=== PATIENT | female | born 1975 | race Hispanic/Latino ===

== ENCOUNTER 2018-11-29 13:24 | Observation (INO) | payer BC ==
[2018-11-29] MEDS ORDERED: NA CHLORIDE 0.9% 1,000 ML ONE (14:49)
--- NOTE | 2018-11-29 15:01 | RAD REPORT ---
EXAM DESCRIPTION: RAD - Tib Fib Left - 11/29/2018 2:55 pm CLINICAL HISTORY: Pain;Swelling COMPARISON: No comparisons FINDINGS: No fracture, dislocation or aggressive marrow pattern. Mild edema is seen throughout the l eft calf.
--- NOTE | 2018-11-29 15:01 | RAD REPORT ---
EXAM DESCRIPTION: RAD - Chest Single View - 11/29/2018 2:55 pm CLINICAL HISTORY: COUGH Chest pain. COMPARISON: No comparisons FINDINGS: Portable technique limits examination quality. The lungs are grossly clear. The heart is normal in size. No displaced fractures. IMPRESSION: No acute intrathoracic process suspected.
[2018-11-29 15:07] LABS: Absolute Lymphocytes (CBC) 1.4 K/uL (0.7-4.9); Absolute Monocytes 0.4 K/uL (0.1-1.3); Absolute Neutrophil 3.5 K/uL (1.8-8.0); Basophils % 1.1 % (0-1.3); Eosinophils % 4.4 % (0-4.4); Hematocrit 37.9 % (36.0-45.0); Lymphocytes % 25.3 % (15.3-44.8); MPV 9.7 fL (7.6-11.3); Monocytes % 7.5 % (3.3-12.3); RBC Red Blood Cell Count 5.11 M/uL (3.86-4.86)
[2018-11-29 15:14] LABS: Protime INR 1.1
--- NOTE | 2018-11-29 15:19 | RAD REPORT ---
EXAM DESCRIPTION: US - Extrem Venous W Compress [place] - 11/29/2018 3:12 pm CLINICAL HISTORY: Pain;Swelling Bilateral leg edema and swelling. COMPARISON: UPPER EXT ARTERY UNI DELANO dated 07/25/2014 TECHNIQUE: Real-time sonographic interrogation of the left and right lower extremity deep venous sys tems was performed. FINDINGS: No evidence of right lower extremity deep venous thrombosis. In the left popliteal vein, e chogenic thrombus is present compatible with DVT. IMPRESSION: Positive for left popliteal vein DVT.
[2018-11-29 15:32] LABS: ALT/SGPT 28 U/L (12-78); AST/SGOT 24 U/L (15-37); Albumin 3.7 g/dL (3.4-5.0); Alkaline Phosphatase 144 U/L (45-117); BUN Blood Urea Nitrogen 12 mg/dL (7-18); Bicarbonate 27 mmol/L (21-32); Bilirubin Direct < 0.1 mg/dL (0-0.2); Bilirubin Total 0.3 mg/dL (0.2-1.0); Glucose Level 103 mg/dL (74-106); Magnesium 2.3 mg/dL (1.8-2.4); NT PRO-BNP 48 pg/mL (<125); Potassium 3.6 mmol/L (3.5-5.1); Protein, Total 8.6 g/dL (6.4-8.2); Sodium Level 139 mmol/L (136-145); Troponin (Emerg Dept Use Only) < 0.02 ng/mL (0.0-0.045)
--- NOTE | 2018-11-29 15:33 | ER ---
Nurse's Notes [facility] Name: Emiliana Malik Age: 43 yrs Sex: Female : 1975 Arrival Date: 11/29/2018 Time: 13:29 Bed 18 Private MD: Yuri Adair Diagnosis: Acute embolism and thrombosis of deep veins of lower extremity Presentation: 11/29 14:01 Presenting complaint: Patient states: LLE swelling and redness started about 12 days sv ago and now has left arm tingling. Transition of care: patient was not received from another setting of care. Onset of symptoms was November 17, 2018. Care prior to arrival: None. 14:01 Method Of Arrival: Ambulatory sv 14:01 Acuity: MATTHEW 3 sv 14:30 Initial Sepsis Screen: Does the patient meet any 2 criteria? No. Patient's initial hb sepsis screen is negative. Does the patient have a suspected source of infection? No. Patient's initial sepsis screen is negative. 14:30 Risk Assessment: Do you want to hurt yourself or someone else? Patient reports no hb desire to harm self or others. Historical: - Allergies: 14:02 Aleve; sv - PSHx: 14:02 ; D \\T\\ C; Breast reduction; sv - Immunization history:: Adult Immunizations up to date. - Family history:: not pertinent. - Social history:: Smoking status: Patient/guardian denies using tobacco. - Ebola Screening: : No symptoms or risks identified at this time. Screenin:30 Abuse screen: Denies threats or abuse. Denies injuries from another. Nutritional hb screening: No deficits noted. Tuberculosis screening: No symptoms or risk factors identified. Fall Risk None identified. Assessment: 14:15 General: Appears in no apparent distress. Behavior is calm, cooperative. Pain: Denies hb pain. Neuro: Level of Consciousness is awake, alert, obeys commands, Oriented to person, place, time, situation. Cardiovascular: Capillary refill < 3 seconds Patient's skin is warm and dry. Respiratory: Airway is patent Respiratory effort is even, unlabored, Respiratory pattern is regular, symmetrical, Breath sounds are clear bilaterally. GI: No signs and/or symptoms were reported involving the gastrointestinal system. : No signs and/or symptoms were reported regarding the genitourinary system. EENT: No signs and/or symptoms were reported regarding the EENT system. Derm: Skin is pink, warm \\T\\ dry. LLE swelling and generalized redness noted. Musculoskeletal: Reports LLE "tightness". 15:00 Reassessment: Patient appears in no apparent distress at this time. Patient and/or hb family updated on plan of care and expected duration. Pain level reassessed. Patient is alert, oriented x 3, equal unlabored respirations, skin warm/dry/pink. 16:00 Reassessment: Patient appears in no apparent distress at this time. No changes from hb previously documented assessment. Patient and/or family updated on plan of care and expected duration. Pain level reassessed. Patient is alert, oriented x 3, equal unlabored respirations, skin warm/dry/pink. 17:00 Reassessment: Patient appears in no apparent distress at this time. Patient and/or hb family updated on plan of care and expected duration. Pain level reassessed. Patient is alert, oriented x 3, equal unlabored respirations, skin warm/dry/pink. Admission ordered, awaiting room assignment at this time. Daughter remains at bedside. 17:44 Reassessment: Patient appears in no apparent distress at this time. Patient and/or hb family updated on plan of care and expected duration. Pain level reassessed. Patient is alert, oriented x 3, equal unlabored respirations, skin warm/dry/pink. 18:20 Reassessment: Patient appears in no apparent distress at this time. Patient and/or hb family updated on plan of care and expected duration. Pain level reassessed. Patient is alert, oriented x 3, equal unlabored respirations, skin warm/dry/pink. 19:26 General: Appears in no apparent distress. comfortable, Behavior is calm, cooperative, tl2 appropriate for age. Pain: Complains of pain in left leg and dorsum of left foot. Neuro: Level of Consciousness is awake, alert, obeys commands, Oriented to person, place, time, situation. Cardiovascular: Denies chest pain. Respiratory: Airway is patent Respiratory effort is even, unlabored, Respiratory pattern is regular, symmetrical. GI: No signs and/or symptoms were reported involving the gastrointestinal system. Derm: Skin is pink, warm \\T\\ dry. redness noted in left ankle and swelling in left ankle and foot. 20:12 Reassessment: pt stable and ready for transport to floor. tl2 Vital Signs: 14:02 BP 126 / 92; Pulse 88; Resp 16; Temp 98.1; Pulse Ox 100% ; Weight 72.57 kg; Height 5 sv ft. 3 in. (160.02 cm); Pain 0/10; 15:30 BP 116 / 68; Pulse 78; Resp 16; Pulse Ox 100% on R/A; hb 17:40 BP 94 / 66; Pulse 68; Resp 16; Pulse Ox 97% ; hb 18:20 BP 96 / 77; Pulse 68; Resp 16; Pulse Ox 98% on R/A; hb 19:23 BP 110 / 88; Pulse 72; Resp 18; Pulse Ox 100% on R/A; tl2 14:02 Body Mass Index 28.34 (72.57 kg, 160.02 cm) sv ED Course: 13:29 Patient arrived in ED. sb2 13:29 Yuri Adair MD is Private Physician. sb2 14:01 Triage completed. sv 14:02 Arm band placed on. sv 14:05 Be Wetzel MD is Attending Physician. roger 14:30 Patient has correct armband on for positive identification. Bed in low position. Call hb light in reach. Side rails up X 1. 14:38 Meagan Evangelista, RN is Primary Nurse. hb 14:39 Radiology exam delayed due to lab results not completed at this time. (BUN/Creatinine). vr 14:45 Inserted saline lock: 20 gauge in right antecubital area, using aseptic technique. hb Blood collected. 14:55 XRAY Chest (1 view) In Process Unspecified. EDMS 14:55 Tib Fib Left XRAY In Process Unspecified. EDMS 15:06 Radiology exam delayed due to lab results not completed at this time. (BUN/Creatinine). vr 15:12 Radiology exam delayed due to lab results not completed at this time. (BUN/Creatinine). vm2 15:12 US Extremity Venous W Compression [place] In Process Unspecified. EDMS 15:31 Radiology exam delayed due to lab results not completed at this time. (BUN/Creatinine). nj 15:31 Doroteo Diaz DO is Hospitalizing Provider. roger 16:03 CT Chest For PE Angio In Process Unspecified. EDMS 16:04 CT completed. Patient tolerated procedure well. Patient moved back from CT. nj 20:12 No provider procedures requiring assistance completed. Patient admitted, IV remains in tl2 place. Administered Medications: 15:10 Drug: NS 0.9% 500 ml Route: IV; Rate: bolus; Site: right antecubital; hb 15:35 Follow up: Response: No adverse reaction; IV Status: Completed infusion hb 15:55 Drug: NS 0.9% 1000 ml Route: IV; Rate: 125 ml/hr; Site: right antecubital; hb 18:55 Follow up: IV Status: Infusion continued upon admission hb 18:57 Follow up: Response: No adverse reaction hb 16:45 Drug: Lovenox 1 mg/kg Route: Sub-Q; Site: abdomen; hb 18:00 Follow up: Response: No adverse reaction hb Outcome: 15:33 Decision to Hospitalize by Provider. roger 20:12 Admitted to Med/surg accompanied by nurse, family with patient, via wheelchair, room tl2 213, with chart, Report called to JENNIFER Luther 20:12 Condition: stable 20:12 Discharge instructions given to patient, Instructed on the need for admit. 20:14 Patient left the ED. tl2 Signatures: Dispatcher [employer] EDMS Shira Davis, RN Be Mccormick MD MD cha Davis, Victoria vr Baxter, Heather, RN RN hb Knox, Taylor, RN RN 2 Harry Rey Victoria Luz Elena Hartman2
--- NOTE | 2018-11-29 15:33 | EDPHYS ---
Physician Documentation [facility] Name: Emiliana Malik Age: 43 yrs Sex: Female : 1975 Arrival Date: 11/29/2018 Time: 13:29 Bed 18 Private MD: Yuri Adair ED Physician Be Wetzel HPI: 11/29 14:25 This 43 yrs old Female presents to ER via Ambulatory with complaints of Leg roger Swelling, Ankle Swelling. 14:25 The patient presents with pain, swelling, tenderness. The complaints affect the left roger ankle, lateral aspect of left calf, left lateral ankle, lateral aspect of left foot, left calf, left Achilles, left heel, medial aspect of left calf, left medial ankle, medial aspect of left foot, left herrera, anterior aspect of left ankle and dorsum of left foot. Onset: The symptoms/episode began/occurred 3 day(s) ago. Context: The problem was sustained at an unknown location. Associated signs and symptoms: The patient has no apparent associated signs or symptoms. Severity of symptoms: At their worst the symptoms were mild, in the emergency department the symptoms are unchanged. The patient has not experienced similar symptoms in the past. Historical: - Allergies: 14:02 Aleve; sv - PSHx: 14:02 ; D \T\ C; Breast reduction; sv - Immunization history:: Adult Immunizations up to date. - Family history:: not pertinent. - Social history:: Smoking status: Patient/guardian denies using tobacco. - Ebola Screening: : No symptoms or risks identified at this time. ROS: 14:25 Constitutional: Negative for fever, chills, and weight loss, Eyes: Negative for injury, roger pain, redness, and discharge, ENT: Negative for injury, pain, and discharge, Neck: Negative for injury, pain, and swelling, Cardiovascular: Negative for chest pain, palpitations, and edema, Respiratory: Negative for shortness of breath, cough, wheezing, and pleuritic chest pain, Abdomen/GI: Negative for abdominal pain, nausea, vomiting, diarrhea, and constipation, Back: Negative for injury and pain, : Negative for injury, bleeding, discharge, and swelling, Skin: Negative for injury, rash, and discoloration, Neuro: Negative for headache, weakness, numbness, tingling, and seizure, Psych: Negative for depression, anxiety, suicide ideation, homicidal ideation, and hallucinations, Allergy/Immunology: Negative for hives, rash, and allergies, Endocrine: Negative for neck swelling, polydipsia, polyuria, polyphagia, and marked weight changes, Hematologic/Lymphatic: Negative for swollen nodes, abnormal bleeding, and unusual bruising. 14:25 MS/extremity: Positive for erythema, pain, swelling, of the left leg. Exam: 14:25 Constitutional: This is a well developed, well nourished patient who is awake, alert, roger and in no acute distress. Head/Face: Normocephalic, atraumatic. Eyes: Pupils equal round and reactive to light, extra-ocular motions intact. Lids and lashes normal. Conjunctiva and sclera are non-icteric and not injected. Cornea within normal limits. Periorbital areas with no swelling, redness, or edema. ENT: Nares patent. No nasal discharge, no septal abnormalities noted. Tympanic membranes are normal and external auditory canals are clear. Oropharynx with no redness, swelling, or masses, exudates, or evidence of obstruction, uvula midline. Mucous membranes moist. Neck: Trachea midline, no thyromegaly or masses palpated, and no cervical lymphadenopathy. Supple, full range of motion without nuchal rigidity, or vertebral point tenderness. No Meningismus. Chest/axilla: Normal chest wall appearance and motion. Nontender with no deformity. No lesions are appreciated. Cardiovascular: Regular rate and rhythm with a normal S1 and S2. No gallops, murmurs, or rubs. Normal PMI, no JVD. No pulse deficits. Respiratory: Lungs have equal breath sounds bilaterally, clear to auscultation and percussion. No rales, rhonchi or wheezes noted. No increased work of breathing, no retractions or nasal flaring. Abdomen/GI: Soft, non-tender, with normal bowel sounds. No distension or tympany. No guarding or rebound. No evidence of tenderness throughout. Back: No spinal tenderness. No costovertebral tenderness. Full range of motion. Female : Normal external genitalia. Skin: Warm, dry with normal turgor. Normal color with no rashes, no lesions, and no evidence of cellulitis. Neuro: Awake and alert, GCS 15, oriented to person, place, time, and situation. Cranial nerves II-XII grossly intact. Motor strength 5/5 in all extremities. Sensory grossly intact. Cerebellar exam normal. Normal gait. Psych: Awake, alert, with orientation to person, place and time. Behavior, mood, and affect are within normal limits. 14:25 Musculoskeletal/extremity: Extremities: noted in the lateral aspect of left calf, left lateral ankle, left calf, left Achilles, medial aspect of left calf, left medial ankle, left herrera and anterior aspect of left ankle: pain, swelling, tenderness. Vital Signs: 14:02 BP 126 / 92; Pulse 88; Resp 16; Temp 98.1; Pulse Ox 100% ; Weight 72.57 kg; Height 5 sv ft. 3 in. (160.02 cm); Pain 0/10; 15:30 BP 116 / 68; Pulse 78; Resp 16; Pulse Ox 100% on R/A; hb 17:40 BP 94 / 66; Pulse 68; Resp 16; Pulse Ox 97% ; hb 18:20 BP 96 / 77; Pulse 68; Resp 16; Pulse Ox 98% on R/A; hb 19:23 BP 110 / 88; Pulse 72; Resp 18; Pulse Ox 100% on R/A; tl2 14:02 Body Mass Index 28.34 (72.57 kg, 160.02 cm) sv MDM: 14:05 Patient medically screened. [facility] 14:27 Data reviewed: vital signs, nurses notes, lab test result(s), EKG, radiologic studies, roger doppler, plain films. 11/29 14:24 Order name: Basic Metabolic Panel; Complete Time: 16:24 [facility] 11/29 14:24 Order name: CBC with Diff; Complete Time: 15:20 [facility] 11/29 14:24 Order name: LFT's; Complete Time: 16:24 [facility] 11/29 14:24 Order name: Magnesium; Complete Time: 16:24 [facility] 11/29 14:24 Order name: NT PRO-BNP; Complete Time: 16:24 [facility] 11/29 14:24 Order name: PT-INR; Complete Time: 16:24 [facility] 11/29 14:24 Order name: Troponin (emerg Dept Use Only); Complete Time: 16:24 [facility] 11/29 14:24 Order name: XRAY Chest (1 view); Complete Time: 15:20 [facility] 11/29 14:24 Order name: US Extremity Venous W Compression [place]; Complete Time: 16:24 [facility] 11/29 14:24 Order name: Blood Culture Adult (2) [facility] 11/29 14:24 Order name: CT Chest For PE Angio [facility] 11/29 14:24 Order name: Tib Fib Left XRAY; Complete Time: 15:20 [facility] 11/29 17:12 Order name: Urine Dipstick--Ancillary (enter results) 11/29 17:12 Order name: Urine --Ancillary (enter results) 11/29 14:24 Order name: EKG; Complete Time: 14:26 [facility] 11/29 14:24 Order name: Cardiac monitoring; Complete Time: 15:32 [facility] 11/29 14:24 Order name: EKG - Nurse/Tech; Complete Time: 15:32 [facility] 11/29 14:24 Order name: IV Saline Lock; Complete Time: 15:32 [facility] 11/29 14:24 Order name: Labs collected and sent; Complete Time: 15:32 [facility] 11/29 14:24 Order name: O2 Per Protocol; Complete Time: 15:33 [facility] 11/29 14:24 Order name: O2 Sat Monitoring; Complete Time: 15:33 [facility] 11/29 14:24 Order name: Urine Dipstick-Ancillary (obtain specimen); Complete Time: 15:32 [facility] 11/29 15:20 Order name: Urine Test (obtain specimen); Complete Time: 15:31 [facility] Administered Medications: 15:10 Drug: NS 0.9% 500 ml Route: IV; Rate: bolus; Site: right antecubital; hb 15:35 Follow up: Response: No adverse reaction; IV Status: Completed infusion hb 15:55 Drug: NS 0.9% 1000 ml Route: IV; Rate: 125 ml/hr; Site: right antecubital; hb 18:55 Follow up: IV Status: Infusion continued upon admission hb 18:57 Follow up: Response: No adverse reaction hb 16:45 Drug: Lovenox 1 mg/kg Route: Sub-Q; Site: abdomen; hb 18:00 Follow up: Response: No adverse reaction hb Disposition: 11/29/18 15:33 Hospitalization ordered by Doroteo Diaz for Inpatient Admission. Preliminary diagnosis is Acute embolism and thrombosis of deep veins of lower extremity. - Bed requested for Telemetry/MedSurg (Inpatient). - Status is Inpatient Admission. tl2 - Condition is Fair. - Problem is new. - Symptoms have improved. UTI on Admission? Yes Signatures: Dispatcher [employer] EDMS Nia Michael Shira Márquez, RN RN Be Khan MD MD cha Baxter, Heather, RN RN Maris Harp RN RN tl2 Corrections: (The following items were deleted from the chart) 15:33 15:33 Hospitalization Ordered by Doroteo Diaz DO for Inpatient Admission. Preliminary roger diagnosis is Acute embolism and thrombosis of deep veins of lower extremity. Bed requested for Telemetry/MedSurg (Inpatient). Status is Inpatient Admission. Condition is Fair. Problem is new. Symptoms have improved. UTI on Admission? No. roger 18:05 15:33 11/29/2018 15:33 Hospitalization Ordered by Doroteo Diaz DO for Inpatient bd Admission. Preliminary diagnosis is Acute embolism and thrombosis of deep veins of lower extremity. Bed requested for Telemetry/MedSurg (Inpatient). Status is Inpatient Admission. Condition is Fair. Problem is new. Symptoms have improved. UTI on Admission? Yes. roger 20:14 18:05 11/29/2018 15:33 Hospitalization Ordered by DoroteoJoel ROSE for Inpatient tl2 Admission. Preliminary diagnosis is Acute embolism and thrombosis of deep veins of lower extremity. Bed requested for Telemetry/MedSurg (Inpatient). Status is Inpatient Admission. Condition is Fair. Problem is new. Symptoms have improved. UTI on Admission? Yes. bd
--- NOTE | 2018-11-29 16:36 | RAD REPORT ---
EXAM DESCRIPTION: CT - Chest For Pe Angio - 11/29/2018 4:01 pm CLINICAL HISTORY: Shortness of breath COMPARISON: None. TECHNIQUE: Dynamically enhanced axial 3 mm thick images of the chest were obtained during administra tion of <100> mL Isovue 370 IV contrast. Coronal and oblique reconstruction images were generated and reviewed. Exam utilizes a protocol for optimal evaluation of pulmonary arterial tree. Maximum intensity projections 3D imaging was utilized All CT scans are performed using dose optimization technique as appropriate and may include automated exposure control or mA/KV adjustment according to patient size. FINDINGS: A pulmonary embolus is not seen. A thoracic aortic aneurysm is not noted. A pleural effusion is not seen. A pericardial effusion is not seen. A lung consolidation is not present. Soft tissue prominence is present within the lower right neck adjacent to the right lobe of thyroid g land. It is incompletely evaluated on this exam IMPRESSION: Negative for a pulmonary embolism. Soft tissue prominence lateral to the right lobe of the thyroid gland is incompletely evaluated on th is exam. Ultrasound is recommended
[2018-11-29] MEDS ORDERED: ENOXAPARIN 80 MG/0.8 ML SQ ONE (17:07)
[2018-11-29] MEDS ORDERED: METRONIDAZOLE 500mg IVPB 500 MG/100 ML BAG IV ONE (17:08)
[2018-11-29] MEDS ORDERED: CIPROFLOXACIN 400mg IV 400 MG/200 ML BAG IV ONE (17:08)
--- NOTE | 2018-11-29 17:09 | EKG ---
Test Date: 2018-11-29 Test Time: 14:33:38 [employer]: KEN MEASUREMENT RESULTS: Intervals: Rate: 65 CO: 122 QRSD: 78 QT: 418 QTc: 434 [place]: P: 8 CO: 122 QRS: -12 T: 12 INTERPRETIVE STATEMENTS: Normal sinus rhythm Normal ECG Compared to ECG 11/08/1998 11:23:00 Sinus bradycardia no longer present Electronically Signed On 11-29-18 17:08:09 [employer]PER[employer] by Evangelista Bates
--- NOTE | 2018-11-29 17:16 | P.HP ---
Certification for Inpatient Patient admitted to: Observation With expected LOS: <2 Midnights Patient will require the following post-hospital care: None Practitioner: I am a practitioner with admitting privileges, knowledge of patient current condition, hospital course, and medical plan of care. Services: Services provided to patient in accordance with Admission requirements found in Title 42 Section 412.3 of the Code of Federal Regulations Patient History Date of Service: 11/29/18 Primary Care Provider: Dr. Adair; Cardiology-Dr. Bates Reason for admission: Left lower extremity swelling History of Present Illness: 43-year-old female presented to the emergency room with left lower extremity swelling. Patient reports left lower extremity swelling for over 12 days. She denies any recent travel, trauma. She reports that her calf feels very tight. Increased swelling noted. Today some erythema noted. She denies any significant fever, cyst chills, chest pain or shortness of breath. Patient reports history of tobacco use, Raynaud's syndrome, and elevated blood pressure in the past. She denies any use of contraception medications In the ER patient evaluated. Vital signs stable. CBC unremarkable. BMP unremarkable. Troponin unremarkable. Venous Doppler shows left popliteal vein DVT. Chest x-ray unremarkable. CT shows no pulmonary embolism. Possible right thyroid nodule verses prominence noted. Patient admitted for observation. When I saw the patient ER, she appeared stable. Home medications list reviewed: Yes - Past Medical/Surgical History Diabetic: No -: Elevated blood pressure without hypertension -: Raynaud's syndrome -: Tobacco use -: Alcohol use -: Breast reduction -: -: Cholecystectomy Psychosocial/ Personal History: Patient is . She has 2 children. She works as an office services manager. - Family History Father -: Heart disease, Hypertension, Diabetes Mother -: Heart disease, Hypertension, Diabetes - Social History Smoking Status: Light Tobacco smoker (1-9 cigarettes/day) Counseled patient to stop smoking for: less than 10 minutes Smoking therapy provided: Yes Patient receptive to therapy: Yes Alcohol use: Yes CD- Drugs: No Caffeine use: Yes Place of Residence: Home Review of Systems General: As per HPI Eyes: Unremarkable ENT: Unremarkable Respiratory: Unremarkable Cardiovascular: Edema, As per HPI Gastrointestinal: Unremarkable Genitourinary: Unremarkable Musculoskeletal: Pedal edema, As per HPI Integumentary: As per HPI Neurological: Unremarkable Lymphatics: Unremarkable Physical Examination - Physical Exam General: Alert, In no apparent distress, Oriented x3, Cooperative HEENT: Atraumatic, Normocephalic, PERRLA, Mucous membr. moist/pink Neck: Supple, No Thyromegaly Respiratory: Clear to auscultation bilaterally, Normal air movement Cardiovascular: Normal pulses, Regular rate/rhythm Gastrointestinal: Normal bowel sounds, Soft and benign, Non-distended, No tenderness, No masses, No rebound, No guarding Musculoskeletal: Other (Mild erythema to the left lower extremity below the knee. Increased swelling noted. Compared to the right side) Neurological: Normal speech, Normal strength at 5/5 x4 extr, Normal tone, Normal affect Lymphatics: No axilla or inguinal lymphadenopathy - Studies Laboratory Data (last 24 hrs) 11/29/18 14:45: PT 13.0 H, INR 1.10 11/29/18 14:45: WBC 5.7, Hgb 12.0, Hct 37.9, Plt Count 365 11/29/18 14:45: Sodium 139, Potassium 3.6, BUN 12, Creatinine 0.71, Glucose 103 , Magnesium 2.3, Total Bilirubin 0.3, AST 24, ALT 28, Alkaline Phosphatase 144 H Assessment and Plan - Plan Impression: Left lower extremity swelling secondary to left popliteal vein DVT Raynaud's syndrome History of social tobacco and alcohol use History of elevated blood pressure Possible thyroid mass Plan: Left lower extremity swelling secondary to left popliteal vein DVT: Patient will be admitted and observed. Will obtain echocardiogram to further evaluate. Will start Lovenox 1 milligram/kilograms subcu twice daily. If unremarkable patient can be discharged tomorrow on anti coagulation therapy. Patient will likely require 3-6 months of therapy. Will check an FENG. Patient will need to see Hematology as an outpatient to further evaluate. Will discuss case with her manager sports. Raynaud's syndrome: patient not taking any medication at this time. History of social tobacco and alcohol use: Tobacco and alcohol cessation addressed in detail. History of elevated blood pressure: Will monitor blood pressure. Possible thyroid mass: Will check tsh and thyroid ultrasound to further evaluate. Discharge Plan: Home Plan to discharge in: 24 Hours - Advance Directives Does patient have a Living Will: No Does patient have a Durable POA for Healthcare: No - Code Status/Comfort Care Code Status Assessed: Yes (Patient full code.) Time Spent Managing Pts Care (In Minutes): 55
[2018-11-29 17:48] LABS: Urine Blood NEGATIVE (NEG); Urine Glucose NEGATIVE (NEG); Urine Protein NEGATIVE (NEG)
[2018-11-29] MEDS ORDERED: ONDANSETRON 4 MG/2 ML VIAL IV PRN (20:10)
[2018-11-29] MEDS ORDERED: ACETAMINOPHEN 500 MG TAB PO PRN (20:10)
--- NOTE | 2018-11-29 21:24 | RAD REPORT ---
EXAM DESCRIPTION: US - Thyroid Para Parotid Gland - 11/29/2018 9:15 pm CLINICAL HISTORY: evaluate for mass L lobe, has LLE DVT COMPARISON: Chest For Pe Angio dated 11/29/2018 FINDINGS: The isthmus of the thyroid measures 3 mm. The right lobe of the thyroid measures 5.0 x 1.5 x 1.5 cm. The left lobe of the thyroid measures 4.7 x 1.6 x 1.4 cm. No thyroid nodule or mass is identified. IMPRESSION: Unremarkable study.
[2018-11-30] MEDS: ENOXAPARIN 80 MG/0.8 ML SQ SCH ×2 (04:50→16:50)
[2018-11-30 06:08] LABS: Magnesium 2.3 mg/dL (1.8-2.4); Thyroid Stimulating Hormone 0.989 uIU/mL (0.360-3.740)
[2018-11-30 06:10] LABS: Absolute Lymphocytes (CBC) 1.3 K/uL (0.7-4.9); Absolute Monocytes 0.6 K/uL (0.1-1.3); Absolute Neutrophil 2.6 K/uL (1.8-8.0); Basophils % 2.2 % (0-1.3); Hematocrit 32.4 % (36.0-45.0); Lymphocytes % 27.1 % (15.3-44.8); Monocytes % 11.7 % (3.3-12.3); RBC Red Blood Cell Count 4.39 M/uL (3.86-4.86)
[2018-11-30 06:22] LABS: Urine Appearance CLEAR; Urine Blood NEGATIVE (NEG); Urine Color YELLOW; Urine Glucose NEGATIVE (NEG); Urine Protein NEGATIVE (NEG); Urine Specific Gravity >=1.030 (1.005-1.030); Urine pH 5.5 (5.0-7.0)
[2018-11-30 07:17] LABS: Urine Bilirubin NEGATIVE (NEG); Urine Microscopic Reflex NO UMIC
--- NOTE | 2018-11-30 13:13 | P.DS ---
Admission Date: 11/29/18 Discharge Date: 11/30/18 Primary Care Provider: Dr. Adair; Cardiology-Dr. Bates Disposition: ROUTINE DISCHARGE Discharge Condition: GOOD Reason for Admission: Left lower extremity swelling Consultations: none Procedures: Venous doppler: COMPARISON: UPPER EXT ARTERY UNI FRANCISCO dated 07/25/2014 TECHNIQUE: Real-time sonographic interrogation of the left and right lower extremity deep venous systems was performed. FINDINGS: No evidence of right lower extremity deep venous thrombosis. In the left popliteal vein, echogenic thrombus is present compatible with DVT. IMPRESSION: Positive for left popliteal vein DVT. CT scan: COMPARISON: None. TECHNIQUE: Dynamically enhanced axial 3 mm thick images of the chest were obtained during administration of <100> mL Isovue 370 IV contrast. Coronal and oblique reconstruction images were generated and reviewed. Exam utilizes a protocol for optimal evaluation of pulmonary arterial tree. Maximum intensity projections 3D imaging was utilized All CT scans are performed using dose optimization technique as appropriate and may include automated exposure control or mA/KV adjustment according to patient size. FINDINGS: A pulmonary embolus is not seen. A thoracic aortic aneurysm is not noted. A pleural effusion is not seen. A pericardial effusion is not seen. A lung consolidation is not present. Soft tissue prominence is present within the lower right neck adjacent to the right lobe of thyroid gland. It is incompletely evaluated on this exam IMPRESSION: Negative for a pulmonary embolism. Soft tissue prominence lateral to the right lobe of the thyroid gland is incompletely evaluated on this exam. Ultrasound is recommended Thyroid US: FINDINGS: The isthmus of the thyroid measures 3 mm. The right lobe of the thyroid measures 5.0 x 1.5 x 1.5 cm. The left lobe of the thyroid measures 4.7 x 1.6 x 1.4 cm. No thyroid nodule or mass is identified. IMPRESSION: Unremarkable study. Medical Problem List: Left lower extremity swelling secondary to left popliteal vein DVT Raynaud's syndrome History of social tobacco and alcohol use History of elevated blood pressure Brief History of Present Illness: 43-year-old female presented to the emergency room with left lower extremity swelling. Patient reports left lower extremity swelling for over 12 days. She denies any recent travel, trauma. She reports that her calf feels very tight. Increased swelling noted. Today some erythema noted. She denies any significant fever, cyst chills, chest pain or shortness of breath. Patient reports history of tobacco use, Raynaud's syndrome, and elevated blood pressure in the past. She denies any use of contraception medications In the ER patient evaluated. Vital signs stable. CBC unremarkable. BMP unremarkable. Troponin unremarkable. Venous Doppler shows left popliteal vein DVT. Chest x-ray unremarkable. CT shows no pulmonary embolism. Possible right thyroid nodule verses prominence noted. Patient admitted for observation. When I saw the patient ER, she appeared stable. Hospital Course: Patient presented with left lower extremity swelling. She has found to have left popliteal vein DVT. Patient was admitted for further evaluation. CT scan showed no pulmonary embolism. Thyroid ultrasound was done to rule out abnormality suspected on initial CT scan. Thyroid or sound unremarkable. At discharge patient will continue with Eliquis 10 mg 1 pill twice daily for 7 days then 5 mg 1 pill twice daily for up to 3 months. Education on Eliquis and DVT will be provided. FENG panel obtained. This could be followed up by her PCP. Recommend to follow up with her PCP in 1 week to recheck lab-CBC, BMP. Recommend for patient to follow up with hematology to further assess her condition. Patient with history of raynaud syndrome. Echocardiogram done. Results pending at discharge. Will discuss case with her engine dynamometer tester for further recommendation. Patient can follow up with cardiology as an outpatient. Vital Signs/Physical Exam: Temp Pulse Resp BP Pulse Ox 97.6 F 75 17 98/54 L 17 L 11/30/18 08:00 11/30/18 08:00 11/30/18 08:00 11/30/18 08:00 11/30/18 08:00 General: Alert, In no apparent distress, Oriented x3, Cooperative HEENT: Atraumatic Neck: Supple Respiratory: Clear to auscultation bilaterally, Normal air movement Cardiovascular: Normal pulses, Regular rate/rhythm Gastrointestinal: Normal bowel sounds, Soft and benign, Non-distended, No tenderness, No masses, No rebound, No guarding Musculoskeletal: No warmth Integumentary: Other (Swelling to the left lower extremity significantly improved. No significant pain noted.) Neurological: Normal speech, Normal strength at 5/5 x4 extr, Normal tone, Normal affect Laboratory Data at Discharge: WBC 4.9 K/uL (4.3-10.9) D 11/30/18 05:31 Hgb 10.4 g/dL (12.0-15.0) L 11/30/18 05:31 Hct 32.4 % (36.0-45.0) L 11/30/18 05:31 Plt Count 331 K/uL (152-406) 11/30/18 05:31 PT 13.0 SECONDS (9.5-12.5) H 11/29/18 14:45 INR 1.10 11/29/18 14:45 Sodium 141 mmol/L (136-145) 11/30/18 05:31 Potassium 4.0 mmol/L (3.5-5.1) 11/30/18 05:31 BUN 15 mg/dL (7-18) 11/30/18 05:31 Creatinine 0.76 mg/dL (0.55-1.3) 11/30/18 05:31 Glucose 123 mg/dL (74-106) H 11/30/18 05:31 Magnesium 2.3 mg/dL (1.8-2.4) 11/30/18 05:31 Total Bilirubin 0.3 mg/dL (0.2-1.0) 11/29/18 14:45 AST 24 U/L (15-37) 11/29/18 14:45 ALT 28 U/L (12-78) 11/29/18 14:45 Alkaline Phosphatase 144 U/L (45-117) H 11/29/18 14:45 Triglycerides 177 mg/dL (<150) H 11/30/18 05:31 Cholesterol 164 mg/dL (<200) 11/30/18 05:31 HDL Cholesterol 47 mg/dL (40-60) 11/30/18 05:31 Cholesterol/HDL Ratio 3.49 11/30/18 05:31 Home Medications: Apixaban [Eliquis] 5 mg PO SEECOM #56 tablet 11/30/18 New Medications: Apixaban [Eliquis] 5 mg PO SEECOM #56 tablet Patient Discharge Instructions: 1. Patient will need to follow up with her PCP in 1 week to follow up this hospitalization. 2. Patient presented with left lower extremity swelling related to Left Popliteal DVT. Patient treated and improved. She will continue with Eliquis 10 mg twice daily for 7 days, then 5 mg twice daily for up to 3 months. Recommendation is for the patient to follow up with her PCP within one week to further address. Recommendation for the patient to see Hematology as outpatient to further address. 3. Recommend to recheck Lab-CBC, BMP in one week to monitor her progress. 4. Recommend to follow up with her engine dynamometer tester as an outpatient to further address her condition. Echocardiogram obtained. This will need to be followed up by her PCP and/or cardiology. Diet: AHA Activity: Ad tomás Time spent managing pt's care (in minutes): 55
--- NOTE | 2018-11-30 13:50 | ECHO ---
HEIGHT: 5 ft 3 in WEIGHT: 160 lb 0 oz DATE OF STUDY: 11/30/[address]: Doroteo Diaz DO 2-DIMENSIONAL: YES M.MODE: YES DOPPLER: YES COLOR FLOW: YES TDS: NO PORTABLE: NO DEFINITY: NO BUBBLE STUDY: NO DIAGNOSIS: LEFT LEG EDEMA/ DEEP VEIN THROMBOSIS CARDIAC HISTORY: CATHERIZATION: NO SURGERY: NO PROSTHETIC VALVE: NO PACEMAKER: NO MEASUREMENTS (cm) DIASTOLIC (NORMALS) SYSTOLIC (NORMALS) IVSd 0.9 (0.6-1.2) LA Diam (1.9-4.0) LVEF 69% LVIDd 3.5 (3.5-5.7) LVIDs 2.2 (2.0-3.5) %FS 38% LVPWd 0.8 (0.6-1.2) Ao Diam 2.1 (2.0-3.7) 2 DIMENSIONAL ASSESSMENT: RIGHT ATRIUM: NORMAL LEFT ATRIUM: NORMAL RIGHT VENTRICLE: NORMAL LEFT VENTRICLE: NORMAL TRICUSPID VALVE: NORMAL MITRAL VALVE: NORMAL PULMONIC VALVE: NORMAL AORTIC VALVE: NORMAL PERICARDIAL EFFUSION: NONE AORTIC ROOT: NORMAL LEFT VENTRICULAR WALL MOTION: NORMAL DOPPLER/COLOR FLOW: MILD TRICUSPID REGURGITATION. COMMENTS: MILD TRICUSPID REGURGITATION. NORMAL LEFT VENTRICULAR SIZE AND FUNCTION. NO THROMBUS. TECHNOLOGIST: LAURA MARTINEZ
== END 2018-11-30 17:12 | disposition home or self-care (01) ==
LOC: ER 13:24 → ERHOLD 17:05 → 2ND 19:54
PROVIDERS: ADMIT Family Medicine; ATTEND Family Medicine
DX: I82.432 Acute embolism and thrombosis of left popliteal vein (principal); I73.00 Raynaud's syndrome without gangrene; Z87.891 Personal history of nicotine dependence
CPT/HCPCS: 36415; 71045; 71275; 76536; 80048; 80061; 80076; 81003; 81025; 83735; 83880; 84439; 84443; 84484; 85025; 85610; 86038; 87040; 93005; 93306; 93970; 96360; 96361; 96372; 99285; G0378; J0744; J1650; J7030; Q9967

== ENCOUNTER 2018-12-28 11:36 | Observation (INO) | payer BC ==
--- OUTSIDE RECORDS SUMMARY | 2018-12-28 11:39 | XMS REPORT ---
:1975 Author Organization [employer] Care Team Providers Name Role Phone Anam Colindres Provider Role Unavailable Allergies, Adverse Reactions, Alerts Substance Reaction Event Type Aleve Info Not Available Drug Allergy Problems Problem Type Condition Code Onset Dates Condition Status Assessment Family history of rheumatoid Z82.61 Active arthritis Problem Chronic deep vein thrombosis (DVT) I82.532 Active of popliteal vein of left lower extremity Problem Raynaud''s disease without gangrene I73.00 Active Problem Mild intermittent asthma without J45.20 Active complication Assessment Raynaud''s disease without gangrene I73.00 Active Assessment Chronic deep vein thrombosis (DVT) I82.532 Active of popliteal vein of left lower extremity Assessment Mild intermittent asthma without J45.20 Active complication Medications Medication Code Code Instructions Start End Date Status Dosage System Date Eliquis 5 mg [facility] 33751180481 5 mg by mouth June 06, Active one twice daily 2018 Tylenol [facility] 93012038738 325 MG Orally Active 1 tablet every 4 hrs as needed Zyrtec Allergy [facility] 14736451929 10 MG Orally Active 1 tablet Once a day Bronkaid [facility] [id number] 25-400 MG Orally Dec 08, Active 1 tablet every 4 hrs 2018 as needed ProAir HFA [facility] [id number] 108 (90 Base) Dec 08, Active 2 puffs MCG/ACT 2019 as needed Inhalation every 6 hrs Results No Known Results Summary Purpose [employer] Submission
[2018-12-28 12:42] LABS: Absolute Lymphocytes (CBC) 1.2 K/uL (0.7-4.9); Absolute Monocytes 0.7 K/uL (0.1-1.3); Absolute Neutrophil 6.2 K/uL (1.8-8.0); Basophils % 0.9 % (0-1.3); Eosinophils % 1.3 % (0-4.4); Hematocrit 36.4 % (36.0-45.0); Lymphocytes % 14.4 % (15.3-44.8); MPV 9.3 fL (7.6-11.3); Monocytes % 8.5 % (3.3-12.3); RBC Red Blood Cell Count 5.03 M/uL (3.86-4.86)
[2018-12-28 12:50] LABS: Protime INR 1.55
[2018-12-28 12:57] LABS: ALT/SGPT 20 U/L (12-78); AST/SGOT 11 U/L (15-37); Albumin 3.5 g/dL (3.4-5.0); Alkaline Phosphatase 142 U/L (45-117); BUN Blood Urea Nitrogen 16 mg/dL (7-18); Bicarbonate 26 mmol/L (21-32); Bilirubin Direct < 0.1 mg/dL (0-0.2); Bilirubin Total 0.3 mg/dL (0.2-1.0); Glucose Level 122 mg/dL (74-106); NT PRO-BNP 10 pg/mL (<125); Potassium 4.1 mmol/L (3.5-5.1); Protein, Total 8.4 g/dL (6.4-8.2); Sodium Level 137 mmol/L (136-145); Troponin (Emerg Dept Use Only) < 0.02 ng/mL (0.0-0.045)
[2018-12-28 13:15] LABS: Urine Bacteria <20 /HPF (<20); Urine Culture Reflex Order NOT NEEDED; Urine RBC <5 /HPF (NONE SEEN)
[2018-12-28 13:33] LABS: Urine Blood TRACE (NEG); Urine Glucose NEGATIVE (NEG); Urine Protein NEGATIVE (NEG); Urine Specific Gravity <1.005 (1.005-1.030); Urine pH 5.5 (5.0-7.0)
--- NOTE | 2018-12-28 13:43 | RAD REPORT ---
EXAM DESCRIPTION: CT - Chest For Pe Angio - 12/28/2018 1:25 pm CLINICAL HISTORY: Chest pain. dvt;SOB COMPARISON: Chest For Pe Angio dated 11/29/2018 TECHNIQUE: CT angiogram of the pulmonary arteries was performed with MIP. All CT scans are performed using dose optimization technique as appropriate and may include automated exposure control or mA/KV adjustment according to patient size. FINDINGS: No evidence of pulmonary thromboembolism. No acute aortic finding demonstrated. Linear subsegmental atelectasis is present in both lung bases. Poorly defined patchy opacities also s een in right posterior lung base with a small amount of right pleural fluid. No evidence pericardial effusion. No concerning bony finding. Cholecystectomy clips. IMPRESSION: No evidence of pulmonary thromboembolism. Right lower lobe pulmonary opacities with trace right pleural fluid suspicious for developing infiltr ate/ pneumonia.
--- NOTE | 2018-12-28 15:25 | RAD REPORT ---
EXAM DESCRIPTION: [facility] Single View12/28/2018 12:31 pm CLINICAL HISTORY: Shortness of breath COMPARISON: November 2018 FINDINGS: Mild right basilar opacity. Left lung appears clear. The heart is normal size IMPRESSION: Mild right basilar opacity may represent pneumonia or atelectasis
[2018-12-28] MEDS ORDERED: CEFTRIAXONE/SWI 1gm 1 GM/10 ML SYR ONE ×2 (15:52→22:50)
[2018-12-28] MEDS ORDERED: AZITHROMYCIN 250 MG TAB ONE (15:52)
[2018-12-28] MEDS ORDERED: NA CHLORIDE 0.9% 1,000 ML ONE ×3 (15:52→21:09)
--- NOTE | 2018-12-28 16:28 | ER ---
Nurse's Notes [facility] Name: Emiliana Malik Age: 43 yrs Sex: Female : 1975 Arrival Date: 12/28/2018 Time: 11:37 Bed 5 Private MD: Chelsie Thomas K Diagnosis: Lobar pneumonia, unspecified organism;Pleurisy;Hypotension Presentation: 12/28 11:51 Presenting complaint: Patient states: pain to R side of neck, under R breast and ss towards R shoulder that began 3 days ago, is worse with deep breathing. Also reports shortness of breath x 1.5 days. Pt is concerned because she was recently diagnosed with a DVT to her L lower extremity and has been taking Eliquis. Transition of care: patient was not received from another setting of care. Onset of symptoms was December 25, 2018. Risk Assessment: Do you want to hurt yourself or someone else? Patient reports no desire to harm self or others. Initial Sepsis Screen: Does the patient meet any 2 criteria? RR > 20 per min. Does the patient have a suspected source of infection? No. Patient's initial sepsis screen is negative. Care prior to arrival: None. 11:51 Method Of Arrival: Ambulatory ss 11:51 Acuity: MATTHEW 3 ss Triage Assessment: 20:49 General: Appears in no apparent distress. Respiratory: the patient has mild shortness ak1 of breath. Historical: - Allergies: 11:54 Aleve; ss - PMHx: 11:54 DVT- LLE; ss - PSHx: 11:54 ; D \T\ C; Breast reduction; ss - Immunization history:: Adult Immunizations up to date. - Social history:: Smoking status: Patient/guardian denies using tobacco. - Ebola Screening: : Patient denies exposure to infectious person Patient denies travel to an Ebola-affected area in the 21 days before illness onset. Screenin:15 Abuse screen: Denies threats or abuse. Denies injuries from another. Nutritional sv screening: No deficits noted. Tuberculosis screening: No symptoms or risk factors identified. Fall Risk None identified. Assessment: 12:15 General: Appears in no apparent distress. comfortable, well groomed, well developed, sv Behavior is calm, cooperative, appropriate for age. Pain: Denies pain. Neuro: Level of Consciousness is awake, alert, obeys commands, Oriented to person, place, time, situation, Moves all extremities. Full function. Cardiovascular: Heart tones S1 S2 Patient's skin is warm and dry. Pulses are 3+ in right radial artery, right dorsalis pedis artery, left radial artery and left dorsalis pedis artery Edema is 1+ to left foot and left toes Rhythm is sinus rhythm. Respiratory: Reports shortness of breath at rest on exertion Airway is patent Respiratory effort is even, unlabored, Respiratory pattern is regular, symmetrical, Breath sounds are clear bilaterally. Onset: The symptoms/episode began/occurred this morning. Derm: Skin is intact, is healthy with good turgor, Skin is pink, warm \T\ dry. Redness noted to the left ankle. Musculoskeletal: Range of motion: intact in all extremities. 12:50 Reassessment: Patient appears in no apparent distress at this time. No changes from sv previously documented assessment. Patient and/or family updated on plan of care and expected duration. Pain level reassessed. Patient is alert, oriented x 3, equal unlabored respirations, skin warm/dry/pink. Pt placed on bedpan to obtain urine sample. 12:59 Reassessment: Serum sent to lab. sv 14:10 Reassessment: Patient appears in no apparent distress at this time. No changes from sv previously documented assessment. Patient and/or family updated on plan of care and expected duration. Pain level reassessed. Patient is alert, oriented x 3, equal unlabored respirations, skin warm/dry/pink. 15:56 Reassessment: Patient appears in no apparent distress at this time. No changes from sv previously documented assessment. Patient and/or family updated on plan of care and expected duration. Pain level reassessed. Patient is alert, oriented x 3, equal unlabored respirations, skin warm/dry/pink. 16:54 Reassessment: Patient appears in no apparent distress at this time. Patient and/or sv family updated on plan of care and expected duration. Pain level reassessed. Patient is alert, oriented x 3, equal unlabored respirations, skin warm/dry/pink. 18:15 Reassessment: Patient appears in no apparent distress at this time. Patient and/or sv family updated on plan of care and expected duration. Pain level reassessed. Patient is alert, oriented x 3, equal unlabored respirations, skin warm/dry/pink. Informed Dr Chawla of vitals and pt stated that she feels much better and can breathe better as well. Vital Signs: 11:54 BP 110 / 93; Pulse 95; Resp 23; Temp 98.4(O); Pulse Ox 99% on R/A; Weight 72.57 kg; ss Height 5 ft. 3 in. (160.02 cm); Pain 5/10; 12:28 BP 111 / 75; Pulse 95; Resp 20; Pulse Ox 99% on R/A; sv 13:00 BP 100 / 77; Pulse 89; Resp 22; Pulse Ox 99% ; sv 13:56 BP 114 / 92; Pulse 97; Resp 23; Pulse Ox 95% ; sv 15:03 BP 91 / 74; Pulse 101; Resp 15; Pulse Ox 97% ; sv 15:56 BP 100 / 80; Pulse 95; Resp 17; Pulse Ox 100% on R/A; sv 17:04 BP 101 / 83; Pulse 90; Resp 21; Pulse Ox 100% ; sv 17:50 Pain 0/10; sv 18:19 BP 90 / 66; Pulse 93; Resp 19; Pulse Ox 99% on R/A; sv 20:46 BP 106 / 82; Pulse 105; Resp 20; Pulse Ox 99% on R/A; ak1 11:54 Body Mass Index 28.34 (72.57 kg, 160.02 cm) ss ED Course: 11:37 Patient arrived in ED. as 11:38 Chelsie Thomas MD is Private Physician. as 11:53 Triage completed. ss 11:54 Ishaan Chawla MD is Attending Physician. gs 11:54 Arm band placed on right wrist. ss 12:15 Patient has correct armband on for positive identification. Placed in gown. Bed in low sv position. Call light in reach. Adult w/ patient. radiation monitor on. Pulse ox on. NIBP on. Door closed. Head of bed elevated. 12:20 Initial lab(s) drawn, by me, sent to lab. Inserted saline lock: 20 gauge in right sv antecubital area, using aseptic technique. Blood collected. Flushed right antecubital with 5 ml normal saline. 12:22 Shira Davis RN is Primary Nurse. sv 12:32 XRAY Chest (1 view) In Process Unspecified. EDMS 12:58 CT Chest For PE Angio In Process Unspecified. EDMS 19:00 Report given to Sophia RODRIGUEZ and Chen RN. sv 19:00 Repeat lab(s) drawn. by ED staff, sent to lab. sv 19:30 Primary Nurse role handed off by Shira Davis RN sv 19:53 Christian David MD is Hospitalizing Provider. gs 20:45 Chen Dale RN is Primary Nurse. ak1 20:46 No provider procedures requiring assistance completed. Patient admitted, IV remains in ak1 place. Administered Medications: 15:56 Drug: NS 0.9% 1000 ml Route: IV; Rate: 1 bolus; Site: right antecubital; sv 16:54 Follow up: Response: No adverse reaction; IV Status: Completed infusion; IV Intake: sv 1000ml 15:56 Drug: Rocephin - (cefTRIAXone) 1 grams Route: IVPB; Infused Over: 30 mins; Site: right sv antecubital; 16:54 Follow up: Response: No adverse reaction; IV Status: Completed infusion; IV Intake: 10mlsv 15:56 Drug: Zithromax 500 mg Route: PO; sv 16:54 Follow up: Response: No adverse reaction sv 16:53 Drug: Albuterol 2.5 mg Route: Inhalation; sv 16:54 Drug: [place] 10 mg-325 mg 1 tabs Route: PO; sv 17:50 Follow up: Pain 0/10 Adult; Response: No adverse reaction; Marked relief of symptoms; sv Pain is decreased 18:22 Drug: NS 0.9% 1000 ml Route: IV; Rate: 1000 ml; Site: right antecubital; sv 19:24 Follow up: Response: No adverse reaction; IV Status: Completed infusion; IV Intake: sv 1000ml 21:02 Drug: NS 0.9% 1000 ml Route: IV; Rate: 150 ml/hr; Site: right antecubital; ak1 21:02 Follow up: IV Status: Infusion continued upon admission ak1 Intake: 16:54 IV: 10ml; Total: 10ml. sv 16:54 IV: 1000ml; Total: 1010ml. sv 19:24 IV: 1000ml; Total: 2010ml. sv Outcome: 16:27 Discharge ordered by . gs 19:54 Decision to Hospitalize by Provider. gs 20:47 Condition: stable ak1 20:47 Instructed on the need for admit. 21:20 Admitted to Med/surg accompanied by tech, family with patient, via wheelchair, room ak1 410, with chart, Report called to Kortney 22:03 Patient left the ED. ak1 Signatures: Dispatcher [employer] EDShira Beatty, Mona Angulo RN, Shelby, RN RN ss Krenek, Amber, RN RN ak1 Ishaan Chawla MD MD
--- NOTE | 2018-12-28 16:29 | EDPHYS ---
Physician Documentation [facility] Name: Emiliana Malik Age: 43 yrs Sex: Female : 1975 Arrival Date: 12/28/2018 Time: 11:37 Bed 5 Private MD: Chelsie Thomas K ED Physician Ishaan Chawla HPI: 12/28 16:20 This 43 yrs old Female presents to ER via Ambulatory with complaints of gs Shortness Of Breath. 16:20 The patient has shortness of breath at rest. Onset: The symptoms/episode began/occurred gs acutely, 4 day(s) ago. Duration: The symptoms are continuous. The patient's shortness of breath is aggravated by deep breathing. Associated signs and symptoms: Pertinent positives: chest pain, hurts to breath deeply. Associated signs and symptoms: Pertinent negatives: non-productive cough, productive cough, fever, hemoptysis, loss of consciousness, numbness in extremities. Severity of symptoms: At their worst the symptoms were moderate in the emergency department the symptoms are unchanged. The patient has not experienced similar symptoms in the past. Historical: - Allergies: 11:54 Aleve; ss - PMHx: 11:54 DVT- LLE; ss - PSHx: 11:54 ; D \T\ C; Breast reduction; ss - Immunization history:: Adult Immunizations up to date. - Social history:: Smoking status: Patient/guardian denies using tobacco. - Ebola Screening: : Patient denies exposure to infectious person Patient denies travel to an Ebola-affected area in the 21 days before illness onset. ROS: 16:20 All other systems are negative. gs Exam: 16:20 Head/Face: Normocephalic, atraumatic. Eyes: Pupils equal round and reactive to light, gs extra-ocular motions intact. Lids and lashes normal. Conjunctiva and sclera are non-icteric and not injected. Cornea within normal limits. Periorbital areas with no swelling, redness, or edema. ENT: Nares patent. No nasal discharge, no septal abnormalities noted. Tympanic membranes are normal and external auditory canals are clear. Oropharynx with no redness, swelling, or masses, exudates, or evidence of obstruction, uvula midline. Mucous membranes moist. Neck: Trachea midline, no thyromegaly or masses palpated, and no cervical lymphadenopathy. Supple, full range of motion without nuchal rigidity, or vertebral point tenderness. No Meningismus. Chest/axilla: Normal chest wall appearance and motion. Nontender with no deformity. No lesions are appreciated. Cardiovascular: Regular rate and rhythm with a normal S1 and S2. No gallops, murmurs, or rubs. Normal PMI, no JVD. No pulse deficits. Respiratory: Lungs have equal breath sounds bilaterally, clear to auscultation and percussion. No rales, rhonchi or wheezes noted. No increased work of breathing, no retractions or nasal flaring. Abdomen/GI: Soft, non-tender, with normal bowel sounds. No distension or tympany. No guarding or rebound. No evidence of tenderness throughout. Back: No spinal tenderness. No costovertebral tenderness. Full range of motion. Skin: Warm, dry with normal turgor. Normal color with no rashes, no lesions, and no evidence of cellulitis. MS/ Extremity: Pulses equal, no cyanosis. Neurovascular intact. Full, normal range of motion. Neuro: Awake and alert, GCS 15, oriented to person, place, time, and situation. Cranial nerves II-XII grossly intact. Motor strength 5/5 in all extremities. Sensory grossly intact. Cerebellar exam normal. Normal gait. 16:20 Constitutional: The patient appears in no acute distress, alert, awake. 16:20 ECG was reviewed by the Attending Physician. 16:20 Respiratory: Breath sounds: are clear throughout. Vital Signs: 11:54 BP 110 / 93; Pulse 95; Resp 23; Temp 98.4(O); Pulse Ox 99% on R/A; Weight 72.57 kg; ss Height 5 ft. 3 in. (160.02 cm); Pain 5/10; 12:28 BP 111 / 75; Pulse 95; Resp 20; Pulse Ox 99% on R/A; sv 13:00 BP 100 / 77; Pulse 89; Resp 22; Pulse Ox 99% ; sv 13:56 BP 114 / 92; Pulse 97; Resp 23; Pulse Ox 95% ; sv 15:03 BP 91 / 74; Pulse 101; Resp 15; Pulse Ox 97% ; sv 15:56 BP 100 / 80; Pulse 95; Resp 17; Pulse Ox 100% on R/A; sv 17:04 BP 101 / 83; Pulse 90; Resp 21; Pulse Ox 100% ; sv 17:50 Pain 0/10; sv 18:19 BP 90 / 66; Pulse 93; Resp 19; Pulse Ox 99% on R/A; sv 20:46 BP 106 / 82; Pulse 105; Resp 20; Pulse Ox 99% on R/A; ak1 11:54 Body Mass Index 28.34 (72.57 kg, 160.02 cm) ss MDM: 12:08 Patient medically screened. 16:20 Differential diagnosis: CHF exacerbation, pneumonia, pulmonary edema, Pulmonary gs Embolism. Data reviewed: vital signs, nurses notes. 12/28 11:55 Order name: Basic Metabolic Panel; Complete Time: 15:24 12/28 11:55 Order name: CBC with Diff 12/28 11:55 Order name: LFT's; Complete Time: 15:24 12/28 11:55 Order name: Magnesium; Complete Time: 15:24 12/28 11:55 Order name: NT PRO-BNP; Complete Time: 15:24 12/28 11:55 Order name: PT-INR; Complete Time: 15:24 12/28 11:55 Order name: Troponin (emerg Dept Use Only); Complete Time: 15:24 12/28 11:55 Order name: Urine Microscopic Only; Complete Time: 15:24 12/28 12:51 Order name: Test, Serum; Complete Time: 15:24 12/28 13:05 Order name: Urine Dipstick--Ancillary (enter results); Complete Time: 15:24 12/28 18:37 Order name: Troponin (emerg Dept Use Only); Complete Time: 20:12 12/28 20:54 Order name: Influenza Screen (A [facility] 12/28 20:57 Order name: Lactate [facility] 12/28 20:57 Order name: Procalcitonin [facility] 12/28 11:55 Order name: XRAY Chest (1 view); Complete Time: 16:19 12/28 11:55 Order name: EKG; Complete Time: 12:05 12/28 11:55 Order name: Cardiac monitoring; Complete Time: 12:26 12/28 11:55 Order name: EKG - Nurse/Tech; Complete Time: 12:04 12/28 11:55 Order name: IV Saline Lock; Complete Time: 12:26 12/28 11:55 Order name: Labs collected and sent; Complete Time: 12: 12/28 11:55 Order name: O2 Per Protocol; Complete Time: 12: 12/28 11:55 Order name: O2 Sat Monitoring; Complete Time: 12: 12/28 11:55 Order name: CT Chest For PE Angio; Complete Time: 15:24 12/28 11:55 Order name: Urine Test (obtain specimen); Complete Time: 13:54 12/28 11:55 Order name: Urine Dipstick-Ancillary (obtain specimen); Complete Time: 13:54 gs EC:20 Rate is 89 beats/min. Rhythm is regular. DE interval is normal. QRS interval is normal. gs T waves are Flattened. No ST changes noted. Clinical impression: Abnormal EKG without significant change. Interpreted by me. Administered Medications: 15:56 Drug: NS 0.9% 1000 ml Route: IV; Rate: 1 bolus; Site: right antecubital; sv 16:54 Follow up: Response: No adverse reaction; IV Status: Completed infusion; IV Intake: sv 1000ml 15:56 Drug: Rocephin - (cefTRIAXone) 1 grams Route: IVPB; Infused Over: 30 mins; Site: right sv antecubital; 16:54 Follow up: Response: No adverse reaction; IV Status: Completed infusion; IV Intake: 10mlsv 15:56 Drug: Zithromax 500 mg Route: PO; sv 16:54 Follow up: Response: No adverse reaction sv 16:53 Drug: Albuterol 2.5 mg Route: Inhalation; sv 16:54 Drug: [place] 10 mg-325 mg 1 tabs Route: PO; sv 17:50 Follow up: Pain 0/10 Adult; Response: No adverse reaction; Marked relief of symptoms; sv Pain is decreased 18:22 Drug: NS 0.9% 1000 ml Route: IV; Rate: 1000 ml; Site: right antecubital; sv 19:24 Follow up: Response: No adverse reaction; IV Status: Completed infusion; IV Intake: sv 1000ml 21:02 Drug: NS 0.9% 1000 ml Route: IV; Rate: 150 ml/hr; Site: right antecubital; ak1 21:02 Follow up: IV Status: Infusion continued upon admission ak1 Disposition: 12/28/18 19:54 Hospitalization ordered by Christian David for Inpatient Admission. Preliminary diagnosis are Lobar pneumonia, unspecified organism, Pleurisy, Hypotension. - Bed requested for Telemetry/MedSurg (Inpatient). - Status is Inpatient Admission. ak1 - Condition is Stable. - Problem is new. - Symptoms have improved. UTI on Admission? No Signatures: Dispatcher [employer] EDTN Shira Davis RN JENNIFER Nayeli Spencer RN JENNIFER Ngozi Ramirez RN RN Chen Dale RN RN [facility] Ishaan Chawla MD MD Corrections: (The following items were deleted from the chart) 16:47 16:27 12/28/2018 16:27 Discharged to Home. Impression: Lobar pneumonia, unspecified gs organism; Pleurisy. Condition is Stable. Forms are Medication Reconciliation Form, Thank You Letter, Antibiotic Education, Prescription Opioid Use. Follow up: Private Physician; When: 2 - 3 days; Reason: Re-evaluation by your physician. 20:57 19:54 Hospitalization Ordered by Christian David MD for Inpatient Admission. Preliminary diagnosis is Lobar pneumonia, unspecified organism; Pleurisy; Hypotension. Bed requested for Telemetry/MedSurg (Inpatient). Status is Inpatient Admission. Condition is Stable. Problem is new. Symptoms have improved. UTI on Admission? No. gs 22:03 20:57 12/28/2018 19:54 Hospitalization Ordered by Christian David MD for Inpatient ak1 Admission. Preliminary diagnosis is Lobar pneumonia, unspecified organism; Pleurisy; Hypotension. Bed requested for Telemetry/MedSurg (Inpatient). Status is Inpatient Admission. Condition is Stable. Problem is new. Symptoms have improved. UTI on Admission? No. mw
[2018-12-28] MEDS ORDERED: HYDROCODONE/APAP 10/325 TAB ONE (17:00)
[2018-12-28] MEDS ORDERED: ALBUTEROL 2.5 MG/3 ML NEB SOL ONE (17:01)
--- NOTE | 2018-12-28 19:05 | EKG ---
Test Date: 2018-12-28 Test Time: 11:56:36 Corn Breeder: KEVIN MEASUREMENT RESULTS: Intervals: Rate: 89 MI: 140 QRSD: 74 QT: 356 QTc: 433 Rewey: P: -6 MI: 140 QRS: -39 T: -7 INTERPRETIVE STATEMENTS: Normal sinus rhythm Left axis deviation Inferior infarct, age undetermined Abnormal ECG Compared to ECG 11/29/2018 14:33:38 Left-axis deviation now present Myocardial infarct finding now present Electronically Signed On 12-28-18 19:02:57 MANAGING EDITOR by Evangelista Bates
--- NOTE | 2018-12-28 21:26 | P.HP ---
Certification for Inpatient Patient admitted to: Observation With expected LOS: <2 Midnights Practitioner: I am a practitioner with admitting privileges, knowledge of patient current condition, hospital course, and medical plan of care. Services: Services provided to patient in accordance with Admission requirements found in Title 42 Section 412.3 of the Code of Federal Regulations Patient History Date of Service: 12/28/18 Reason for admission: SOB, right side chest pain History of Present Illness: Ms Malik id s 43 years old woman with history of Raynaud's syndrome, recently admitted due to lower extremity DVT, currently on Eliquis treatment, who came to ED complaining of right shoulder pain since 3 days ago. The pain radiated to the neck and chest wall. The pain is constant and is exacerbated with deep breath. She is also complaining of SOB, but denied cough or fever. In ER the patient was afebrile, BP on the lower side 100/77. She received [place] for pain, and her BP went even lower, 90/66. Lab work shows normal WBC count. CTA chest was negative for PE, but shows a right lower lobe opacity with trace pleural effusion, possible developing pneumonia. Allergies naproxen [From Aleve] Adverse Reaction (Verified 11/29/18 19:47) Hiv Home medications list reviewed: Yes Home Medications: Apixaban [Eliquis] 5 mg PO SEECOM #74 tablet 11/30/18 - Past Medical/Surgical History Diabetic: No -: Elevated blood pressure without hypertension -: Raynaud's syndrome -: Tobacco use -: Alcohol use -: DVT -: Breast reduction -: -: Cholecystectomy Psychosocial/ Personal History: Patient is . She has 2 children. She works as an protective services officer. - Family History Father -: Heart disease, Hypertension, Diabetes Mother -: Heart disease, Hypertension, Diabetes - Social History Smoking Status: Former smoker Alcohol use: Yes CD- Drugs: No Caffeine use: Yes Place of Residence: Home Review of Systems 10-point ROS is otherwise unremarkable Physical Examination - Physical Exam General: Alert, In no apparent distress HEENT: Atraumatic, PERRLA, Mucous membr. moist/pink, EOMI, Sclerae nonicteric Neck: Supple, 2+ carotid pulse no bruit, No LAD, Without JVD or thyroid abnormality Respiratory: Diminished, Crackles/rales (crackles on right base) Cardiovascular: Regular rate/rhythm, Normal S1 S2 Gastrointestinal: Normal bowel sounds, No tenderness Musculoskeletal: No tenderness Integumentary: No rashes Neurological: Normal speech, Normal strength at 5/5 x4 extr, Normal tone, Normal affect Lymphatics: No axilla or inguinal lymphadenopathy - Studies Laboratory Data (last 24 hrs) 12/28/18 12:20: PT 18.0 H, INR 1.55 12/28/18 12:20: WBC 8.3, Hgb 11.5 L, Hct 36.4, Plt Count 272 12/28/18 12:20: Sodium 137, Potassium 4.1, BUN 16, Creatinine 0.77, Glucose 122 H, Magnesium 2.0, Total Bilirubin 0.3, AST 11 L, ALT 20, Alkaline Phosphatase 142 H Assessment and Plan - Problems (Diagnosis) (1) Dyspnea Current Visit: Yes Status: Acute (2) Pneumonia Current Visit: Yes Status: Acute Qualifiers: Pneumonia type: due to unspecified organism Laterality: right Lung location: lower lobe of lung Qualified Code(s): J18.1 - Lobar pneumonia, unspecified organism (3) History of DVT (deep vein thrombosis) Current Visit: Yes Status: Acute - Plan Will admit the patient for signs consistent with early pneumonia. Will order lactate, procalcitonin, blood culture and influenza screen. Start empiric antibiotic treatment. Consult brake linings coater. - Advance Directives Does patient have a Living Will: No Does patient have a Durable POA for Healthcare: No - Code Status/Comfort Care Code Status Assessed: Yes Code Status: Full Code
[2018-12-28] MEDS ORDERED: APIXABAN 5 MG TABLET PO SCH (22:18)
[2018-12-28] MEDS ORDERED: ONDANSETRON 4 MG/2 ML VIAL IV PRN (22:18)
[2018-12-28] MEDS ORDERED: CEFTRIAXONE 1 GM/NS 50 ML 1 GM/50 ML BAG IV SCH (22:18)
[2018-12-28] MEDS ORDERED: ALBUTEROL 2.5 MG/3 ML NEB SOL NEB PRN (22:18)
[2018-12-28] MEDS ORDERED: IPRATROPIUM BROM 0.5MG/2.5ML NEB PRN (22:18)
[2018-12-28] MEDS: NA CHLORIDE 0.9% 1,000 ML IV SCH (22:57)
[2018-12-29] MEDS: TRAMADOL HCL 50 MG TAB PO PRN ×2 (02:59→10:18)
[2018-12-29] MEDS: NA CHLORIDE 0.9% 1,000 ML IV SCH (06:44)
[2018-12-29 07:09] LABS: Absolute Lymphocytes (CBC) 1.2 K/uL (0.7-4.9); Absolute Monocytes 0.8 K/uL (0.1-1.3); Absolute Neutrophil 4.4 K/uL (1.8-8.0); Basophils % 0.8 % (0-1.3); Hematocrit 30.2 % (36.0-45.0); Lymphocytes % 18.6 % (15.3-44.8); MPV 9.5 fL (7.6-11.3); Monocytes % 11.8 % (3.3-12.3); RBC Red Blood Cell Count 4.15 M/uL (3.86-4.86)
[2018-12-29 07:10] LABS: BUN Blood Urea Nitrogen 10 mg/dL (7-18); Bicarbonate 24 mmol/L (21-32); Glucose Level 110 mg/dL (74-106); Potassium 4.3 mmol/L (3.5-5.1); Sodium Level 138 mmol/L (136-145)
[2018-12-29] MEDS ORDERED: INFLUENZA VACCINE (for 3y+) 0.5 ML DOSE IMVAC ONE ×2 (08:00→16:00)
--- NOTE | 2018-12-29 08:25 | P.CNS ---
Date of Consult: 12/29/18 Chief Complaint: SOB, right side chest pain History of Present Illness: Patient is 43 years of age was recently diagnosed with DVT of the left leg about a month ago she started complaining of 3 day history of pain in the right neck right arm right chest described as pleuritic and spasmodic this slight cough no fever chills patient does not smoke history of asthma at a younger age does not use any medications or any bronchodilators at home denies any fever or chills patient came to the emergency room and was anti coagulated Allergies naproxen [From Aleve] Adverse Reaction (Verified 11/29/18 19:47) Hives Home Medications: Apixaban [Eliquis] 5 mg PO BID 12/28/18 Cetirizine HCl/Pseudoephedrine [Zyrtec-D Tablet] 1 each PO DAILY PRN 12/28/18 - Past Medical/Surgical History Diabetic: No -: Elevated blood pressure without hypertension -: Raynaud's syndrome -: Tobacco use -: Alcohol use -: DVT -: Breast reduction -: -: Cholecystectomy Psychosocial/ Personal History: Patient is . She has 2 children. She works as an army officer. - Family History Father Medical History: Heart disease, Hypertension, Diabetes Mother Medical History: Heart disease, Hypertension, Diabetes - Social History Smoking Status: Current some day smoker Alcohol use: Yes CD- Drugs: No Caffeine use: Yes Place of Residence: Home Review of Systems 10-point ROS is otherwise unremarkable Physical Examination Temp Pulse Resp BP Pulse Ox 98.5 F 83 18 102/60 99 12/29/18 04:00 12/29/18 04:00 12/29/18 04:00 12/29/18 04:00 12/29/18 04:00 General: Alert, In no apparent distress, Oriented x3 HEENT: Atraumatic Neck: Supple Respiratory: Clear to auscultation bilaterally Cardiovascular: No edema, Regular rate/rhythm Gastrointestinal: Normal bowel sounds, Soft and benign Laboratory Data (last 24 hrs) 12/28/18 12:20: PT 18.0 H, INR 1.55 12/28/18 12:20: WBC 8.3, Hgb 11.5 L, Hct 36.4, Plt Count 272 12/28/18 12:20: Sodium 137, Potassium 4.1, BUN 16, Creatinine 0.77, Glucose 122 H, Magnesium 2.0, Total Bilirubin 0.3, AST 11 L, ALT 20, Alkaline Phosphatase 142 H - Problems (1) Chest pain Current Visit: Yes Status: Acute Plan: Patient is 43 years of age admitted with 3 day history of right-sided neck arm pain describes a pleuritic possible developing infection on the right side was diagnosed with DVT of the left leg about a month ago he is on therapeutic doses of Eliquis labs are unremarkable vital signs are all stable oxygenation satisfactory but possible that she has a developing infection in the right lung I suggest discharging her on some of Zithromax continue with Eliquis follow with me in 2 weeks anticoagulation workup he is usually not helpful patient was diagnosed with left popliteal DVT and November 29 and he remains in etiopathic DVT no evidence of pulmonary embolism treat with full doses of Eliquis for the next 6 months possible indefinite anticoagulation Qualifiers: Chest pain type: unspecified Qualified Code(s): R07.9 - Chest pain, unspecified
[2018-12-29] MEDS ORDERED: CEFTRIAXONE/SWI 1gm 1 GM/10 ML SYR IV SCH (09:00)
[2018-12-29] MEDS ORDERED: AZITHROMYCIN IV 500 MG in NA CHLORIDE 0.9% 250 ML IVPB SCH (09:00)
[2018-12-29] MEDS ORDERED: APIXABAN 5 MG TABLET PO SCH ×2 (09:00→21:00)
--- NOTE | 2018-12-29 09:04 | RAD REPORT ---
EXAM DESCRIPTION: Ortiz Pa And Lat (2 Views)12/29/2018 8:24 am CLINICAL HISTORY: Cough COMPARISON: December 28 FINDINGS: The right basilar opacity has mildly worsened. Mild left basilar opacity has developed. The heart is normal size IMPRESSION: Mild worsening in a right basilar pneumonia Mild left basilar opacity has developed which may represent additional pneumonia
[2018-12-29] MEDS ORDERED: PSEUDOEPHEDRINE PO PRN (11:26)
[2018-12-29] MEDS ORDERED: CETIRIZINE HCL PO PRN (11:26)
--- NOTE | 2018-12-30 02:15 | DS ---
Date of Discharge: 12/29/2018 Host/Hostess: Dr. Jensen with Pulmonology. Discharge Diagnoses: 1.Dyspnea. 2.Right lower lobe pneumonia. 3.History of recent deep venous thrombosis. 4.Pleuritic chest pain. 5.Raynaud phenomena. Hospital Course: The patient is a 43-year-old female with past medical history of Raynaud syndrome, recent lower extremity DVT, on Eliquis, comes in with pleuritic type of chest pain extending into the neck and chest wall. The patient also reported some shortness of breath, but no specific cough or f ever. The patient did have an episode of hypotension after receiving Cut Off for pain. However, her b lood pressure recovered. Imaging studies including CT chest ruled out PE. Did show some right lower lobe pulmonary opacities with trace right pleural fluid suspicious for developing infiltrate or pneu monia. The patient was started on IV antibiotics. She had blood cultures obtained. Influenza scree n was negative. She was also seen by medical director, Dr. Jensen. The patient was able to be weaned off supplemental oxygen. Her blood pressure remained stable. She was afebrile throughout the cours e of the hospital stay. The patient was able to ambulate without any difficulty. Her repeat chest x -ray now was showing right basilar pneumonia and mild left basilar opacity developed, which may repre sent additional pneumonia. I explained to the patient that this is likely a lag in the imaging studi es, specifically on chest x-ray. Clinically, she is significantly better, does not have any white co unt, is not septic. Her procalcitonin and lactate levels are normalized. Troponin level is negative as well. Regarding the pleuritic chest pain, this is likely due to the pneumonia. Recommend ibupro fen over the counter within reasonable limits. The patient does not have any history of heart diseas e, kidney disease, or ulcers. The patient is to follow up with Dr. Jensen in [address] week for repeat [address] x-ray. Followup: Follow up with PCP in 2 to 3 days. Return to ER for worsening condition. Diet: Heart healthy. Activity: As tolerated. Medications: As per medication reconciliation list. Finish up course of azithromycin 250 mg daily f or 5 days. Physical Examination: General: Awake, alert, and oriented x3. No acute distress. CV: S1, S2. No murmurs. Respiratory: Moving air well bilaterally. Some diminished breath sounds at the bases. No rhonchi. No wheezing. No stridor. Gastrointestinal: Abdomen is soft, nontender, and nondistended. Positive bowel sounds. Extremities: No clubbing, cyanosis, or edema. Neurologic: Nonfocal. SA/MODL Voice ID: [id number] Report ID: [id number]
[2018-12-30] MEDS ORDERED: AZITHROMYCIN 250 MG TAB PO SCH (09:00)
== END 2018-12-29 16:52 | disposition home or self-care (01) ==
LOC: ER 11:36 → ERHOLD 21:05 → 4TH 21:52
PROVIDERS: ADMIT Internal Medicine; ATTEND Internal Medicine
DX: J18.9 Pneumonia, unspecified organism (principal); R07.89 Other chest pain; I73.00 Raynaud's syndrome without gangrene; F17.210 Nicotine dependence, cigarettes, uncomplicated; Z86.718 Personal history of other venous thrombosis and embolism
CPT/HCPCS: 36415; 71045; 71046; 71275; 80048; 80076; 81003; 81015; 83605; 83735; 83880; 84145; 84484; 84703; 85025; 85610; 87040; 87804; 93005; 94760; 96361; 96365; 99285; G0378; J0456; J0696; J7030; Q9967